=== PATIENT | female | born 1935 | race Caucasian/White ===

== ENCOUNTER 2017-07-29 12:58 | Outpatient (RCR) | payer MEDICARE, BC, SELFPAY | END 2017-07-29 12:59 | disposition home or self-care (01) | LOC: PT 12:58 | PROVIDERS: Visit Provider Physician Assistant | DX: L97.219 Non-pressure chronic ulcer of right calf with unspecified severity (principal) | CPT/HCPCS: 29580; 97162; 97597; 97598 ==

== ENCOUNTER 2021-03-20 15:00 | Emergency (ER) | payer MEDICARE, SELFPAY ==
[2021-03-20] VITALS (9 sets, daily range): BP systolic 96–159; BP diastolic 47–89; PULSE 62–101; RESP 20; TEMP 36.6–36.8; O2SAT 94–98; BMI 12.9; BMI 13.9
--- NOTE | 2021-03-20 15:26 | [facility].EDGENADL ---
ED Disposition Clinical Impression: Pyelonephritis of right kidney Disposition: Home, Self-Care Condition on Discharge: Good Additional Instructions: I'm sending you home with a prescription for Omnicef it is important to take the full course of this prescription even if your symptoms resolve. This is to stop bacteria from remaining. Referrals: Harshal Warren MD [Primary Care Provider] - - Critical Care Critical Care Time: No Attestation: On 03/20/21, the high probability of a clinically significant, sudden or life threatening deterioration of the following system(s) required my full and direct attention, intervention and personal management. The time I documented below is in addition to time spent performing reported procedures but includes the following listed in this critical care notation. Medical Decision Making - Medical Records Medical records reviewed: Yes: I reviewed the patient's medical records. - [facility] Inquiry Pt receiving controlled substance: No Vital Signs: 03/20/21 15:01 03/20/21 15:30 Temperature 98 F Temperature Source Oral Pulse Rate 72 Pulse Rate [Radial] 101 H Respiratory Rate 20 Blood Pressure 135/70 Blood Pressure [Right Arm] 159/89 H Blood Pressure Mean 104 Blood Pressure Mean [Right Arm] 112 Blood Pressure Position [Right Arm] Sitting 02 Sat by Pulse Oximetry 98 95 Oxygen Delivery Method Room Air - Lab Data Lab Results 03/20/21 15:10: WBC 12.2 H, RBC 4.30, Hgb 13.0, Hct 40.8, MCV 94.9, MCH 30.1, MCHC 31.8, RDW 12.7, Plt Count 312, MPV 9.1, Neut % (Auto) 92.8 H, Lymph % (Auto) 3.8 L, [place] % (Auto) 3.2, Eos % (Auto) 0.1, Baso % (Auto) 0.2, Neut # (Auto) 11.3 H, Lymph # (Auto) 0.5 L, [place] # (Auto) 0.4, Eos # (Auto) 0.0, Baso # (Auto) 0.0, Total Counted 100, Neutrophils % (Manual) 92 H, Lymphocytes % (Manual) 3 L, Monocytes % (Manual) 3, Eosinophils % (Manual) 2, Platelet Estimate Normal 03/20/21 15:10: Sodium 139, Potassium 4.1, Chloride 104, Carbon Dioxide 27, Anion Gap 12.1, BUN 31 H, Creatinine 0.60, Estimated Creat Clear 29, Estimated GFR 95, Est GFR ( Amer) 115, Glucose 150 H, Calcium 9.0, Total Bilirubin 0.8, AST 31, ALT 8 L, Alkaline Phosphatase 96, Total Protein 7.2, Albumin 4.0, Globulin 3.2, Albumin/Globulin Ratio 1.3 03/20/21 15:20: Urine Color Yellow, Urine Appearance Cloudy, Urine pH 6.0, Ur Specific [place] 1.020, Urine Protein Trace, Urine Glucose (UA) Negative, Urine Ketones Negative, Urine Blood 2+, Urine Nitrate Negative, Urine Bilirubin Negative, Urine Urobilinogen 0.2, Ur Leukocyte Esterase 3+ A, Urine RBC 10-20, Urine WBC Tntc, Ur Squamous Epith Cells None, Urine Bacteria 1+ Result diagrams: 03/20/21 15:10 03/20/21 15:10 Orders (Tests/Meds): ED MEDICATIONS Generic Name Dose Route Start Last Admin Trade Name Freq PRN Reason Stop Dose Admin Ceftriaxone Sodium 1 gm/ 50 mls @ 100 mls/hr 03/20/21 16:00 03/20/21 16:15 Sodium Chloride IV 04/03/21 15:59 100 mls/hr Q24H CLAUDINE Administration ORDERS Category Date Time Status Urine Culture Stat Micro 03/20/21 15:20 Received Medical Decision Narrative: Patient is an 85-year-old female with a past medical history of strokes is presenting to the emergency department chief complaint of right-sided flank pain for 2 days. Differential diagnosis includes UTI, nephrolithiasis, CARMEN among others. Given this plan order CBC, CMP, UA and reassess patient. Patient had no signs of an CARMEN, no impairment, patient reported a history of allergy to penicillin with hives, she was given 1 g of Rocephin while here in the emergency department, and observed and sent home on cefdinir. As discussed with her family who help care for her. General Adult HPI - General Chief complaint: PAIN Stated complaint: pain Time Seen by Provider: 03/20/21 15:00 Source of Information: Patient Limitations: No Limitations - History of Present Illness HPI narrative: She is an 85-year-old female who is presenting
[2021-03-20 15:30] LABS: Microscopic, Urine URINE MICROSCOPIC (MICROSCOPIC)
[2021-03-20 15:35] LABS: Basophils % 0.2 % (0.1-2.0); Eosinophils % 0.1 % (0.1-12.0); Hematocrit 40.8 % (37.0-47.0); Lymphocytes # 0.5 K/mm3 (0.7-4.5); Lymphocytes % 3.8 % (10-50); Mean Corpuscular HGB Conc 31.8 g/dL (31.8-35.4); Mean Corpuscular Hemoglobin 30.1 pg (27.0-31.2); Mean Corpuscular Volume 94.9 fl (81-99); Mean Platelet Volume 9.1 fl (7.4-10.4); Monocytes # 0.4 K/mm3 (0.1-1.0); Monocytes % 3.2 % (1.7-9.3); Neutrophils # 11.3 K/mm3 (1.8-7.8); Neutrophils % 92.8 % (37.0-80.0); Platelet Count 312 K/mm3 (142-424); Red Cell Distribution Width 12.7 % (11.5-17.5); White Blood Count 12.2 K/mm3 (4.8-10.8)
[2021-03-20 15:38] LABS: Alanine Aminotransferase 8 U/L (12-78); Albumin/Globulin Ratio 1.3 (1.1-1.8); Alkaline Phosphatase 96 U/L (38-126); Anion Gap 12.1 mEq/L (5-15); Aspartate Amino Transferase 31 U/L (14-36); Bilirubin,Total 0.8 mg/dl (0.2-1.3); Blood Urea Nitrogen 31 mg/dl (7-17); Carbon Dioxide 27 mmol/L (22.0-30.0); Chloride 104 mmol/L (98-107); Creatinine Clearance Estimated 29 mL/min (50-200); Estimated Glomerular Filt Rate 95 ml/min (>60); GFR (African American) 115 ML/MIN (>60); Globulin 3.2 g/dL (1.3-3.2); Glucose 150 mg/dl (74-100); Potassium 4.1 mmoL/L (3.5-5.1); Sodium 139 mmol/L (136-145); Total Protein,Serum 7.2 g/dl (6.3-8.2)
[2021-03-20 15:47] LABS: Appearance,Urine CLOUDY (Clear); Bilirubin,Urine Negative (Negative); Blood, Urine 2+ (Negative); Color,Urine YELLOW (Yellow); Glucose,Urine (UA) Negative (Negative); Ketones,Urine Negative (Negative); Leukocyte Esterase,Urine 3+ (Negative); Nitrate,Urine Negative (Negative); Protein,Urine TRACE (Negative); Urobilinogen,Urine 0.2 EU/dl (0.2)
[2021-03-20 15:54] LABS: MANUAL DIFFERENTIAL MANUAL DIFFERENTIAL (MANUAL DIFF)
[2021-03-20 16:04] LABS: Bacteria,Urine 1+ /lpf; WBC,Urine TNTC #/hpf (0-3)
[2021-03-20 17:21] LABS: Eosinophils % 2 % (0-3); Lymphocytes % 3 % (10-50); Monocytes % 3 % (2-9); Neutrophils % 92 % (42-76); Platelet Estimate Normal; Total Cells Counted 100
--- NOTE | 2021-03-20 18:39 | PC.NURSE ---
Pt is ready for discharge. Pt to go back to residence by EMS. EMS aware. Spoke with Erasto Contreras. He stated as soon as they are able to transfer pt that they would be up to get her. Updated family.
== END 2021-03-20 19:22 | disposition home or self-care (01) ==
PROVIDERS: Emergency Provider Emergency Medicine; PCP Family Medicine
DX: N10 Acute pyelonephritis (principal)
CPT/HCPCS: 80053; 81001; 85007; 85025; 87086; 87088; 87186; 96365; 99283